=== PATIENT | male | born 1985 | race Two or more races ===

== ENCOUNTER → 2023-04-15 | Outpatient (CLI) | payer OTHER ==
[2023-04-15 11:07] LABS: Basophils # (auto) 0.1 10 ^3/uL (0-0.2); Basophils % (auto) 1.5 % (0.0-2.0); Eosinophils # (auto) 0.2 10 ^3/uL (0-0.8); Eosinophils % (auto) 4.6 % (0.0-7.0); Hematocrit 44.2 % (41.0-53.0); Hemoglobin 15.6 g/dL (13.5-17.5); Lymphocytes # (auto) 1.7 10 ^3/uL (0.4-5.4); Lymphocytes % (auto) 33.6 % (10.0-50.0); Mean Corpuscular Hemoglobin 29.5 pg (28.0-32.0); Mean Corpuscular Hgb Conc. 35.4 g/dL (32.0-36.0); Mean Corpuscular Volume 83.4 fL (80.0-100.0); Monocytes # (auto) 0.3 10 ^3/uL (0-1.3); Monocytes % (auto) 5.6 % (0.0-12.0); Neutrophils # (auto) 2.8 10 ^3/uL (1.6-8.6); Neutrophils % (auto) 54.7 % (37.0-80.0); Nucleated Red Blood Cells % 0.8 %; Red Blood Cells 5.29 10^6/uL (4.5-5.90); White Blood Cell 5.1 10^3/uL (4.4-10.8)
[2023-04-15 11:26] LABS: Albumin 4.1 g/dL (3.4-5.0); Calcium 9.1 mg/dL (8.5-10.1)
[2023-04-15 11:29] LABS: Urine Bacteria NONE SEEN /hpf (None Seen); Urine Blood Negative /uL (Negative); Urine Specific Gravity 1.025 (1.001-1.035); Urine WBC 1 /hpf (0 - 3)
[2023-04-15 11:32] LABS: Bilirubin, Total 0.8 mg/dL (0.2-1.0); Potassium 3.9 mmol/L (3.5-5.1); Total Protein 7.7 g/dL (6.4-8.2); Uric Acid 6.4 mg/dL (3.5-7.2)
[2023-04-15 11:38] LABS: BUN/Creatinine Ratio 15.6 (10.0-20.0)
== END | disposition home or self-care (01) ==
LOC: LAB 10:44
PROVIDERS: ATTEND Student in an Organized Health Care Education/Training Program
DX: I10 Essential (primary) hypertension (principal); E03.9 Hypothyroidism, unspecified; M10.9 Gout, unspecified
CPT/HCPCS: 36415; 80053; 80061; 81001; 83036; 84439; 84443; 84550; 85025

== ENCOUNTER → 2024-02-22 | Outpatient (CLI) | payer OTHER ==
[2024-02-22 11:47] LABS: Urine Bacteria None Seen /hpf (None Seen); Urine WBC None Seen /hpf (0 - 3)
[2024-02-22 12:01] LABS: Hematocrit 43.5 % (41.0-53.0); Hemoglobin 15.1 g/dL (13.5-17.5); Mean Corpuscular Hemoglobin 29.3 pg (28.0-32.0); Mean Corpuscular Hgb Conc. 34.6 g/dL (32.0-36.0); Mean Corpuscular Volume 84.5 fL (80.0-100.0); Red Blood Cells 5.15 10^6/uL (4.5-5.90); Red Cell Distribution Width 13.7 % (11.8-14.3); White Blood Cell 3.8 10^3/uL (4.4-10.8)
[2024-02-22 12:04] LABS: Urine Blood Negative /uL (Negative); Urine Clarity Clear (Clear); Urine Color Light-Yellow (Yellow); Urine Protein, UAD 1+ (Negative); Urine Specific Gravity 1.015 (1.001-1.035); Urine Urobilinogen Normal (Negative); Urine pH 5.5 (5.0-9.0)
[2024-02-22 12:09] LABS: Basophils % (manual) 0 (0.0-2.0); Blast Cells 0; Metamyelocytes % 0; Monocytes % (manual) 0 (0-12); Myelocytes % 0; Promyelocytes % 0; Reactive Lymphocytes 0
[2024-02-22 12:30] LABS: Band Neutrophils % (manual) 1; Eosinophils % (manual) 25 (0-7); Lymphocytes % (manual) 35 (10.0-50.0); Platelet Estimate Adequate
[2024-02-22 12:42] LABS: Alanine Aminotransferase 55 U/L (7-40); Albumin 4.3 g/dL (3.2-4.8); Alkaline Phosphatase 85 U/L (46-116); Anion Gap 6 (5-15); Aspartate Aminotransferase 30 U/L (13-40); Blood Urea Nitrogen 19 mg/dL (9-23); Calcium 9.5 mg/dL (8.5-10.1); Carbon Dioxide 26 mmol/L (20-30); Chloride 104 mmol/L (98-107); Glucose 171 mg/dL (74-106); LDL Cholesterol 95 mg/dL (< 100); Potassium 4.5 mmol/L (3.5-5.1); Sodium 136 mmol/L (136-145); Triglycerides 110 mg/dL (< 150)
[2024-02-22 12:43] LABS: Bilirubin, Total 0.9 mg/dL (0.2-1.0); Cholesterol 150 mg/dL (< 200); HDL Cholesterol 39 mg/dL (40-59); Total Protein 7.5 g/dL (5.7-8.2)
[2024-02-22 12:50] LABS: Creatinine, Urine 105.59 mg/dL (30.0-125.0)
== END | disposition home or self-care (01) ==
LOC: LAB 11:34
PROVIDERS: ATTEND Student in an Organized Health Care Education/Training Program
DX: I10 Essential (primary) hypertension (principal); E11.9 Type 2 diabetes mellitus without complications; E03.8 Other specified hypothyroidism; N28.89 Other specified disorders of kidney and ureter
CPT/HCPCS: 36415; 80053; 80061; 81001; 82043; 82378; 82570; 83036; 84443; 85007; 85027

== ENCOUNTER → 2024-07-16 | Outpatient (CLI) | payer OTHER ==
[2024-07-16 11:09] LABS: Potassium 4.1 mmol/L (3.5-5.1)
[2024-07-16 11:10] LABS: Calcium 9.7 mg/dL (8.7-10.4)
[2024-07-16 11:15] LABS: BUN/Creatinine Ratio 12.4 (10.0-20.0)
[2024-07-16 11:16] LABS: Albumin 4.2 g/dL (3.2-4.8)
[2024-07-16 11:17] LABS: Phosphorus 3.6 mg/dL (2.4-5.1)
[2024-07-16 11:25] LABS: CRP High Sensitivity 1.33 mg/dL (<1.0)
[2024-07-16 12:17] LABS: Erythrocyte Sedimentation Rate 9 mm/hr (0-20)
== END | disposition home or self-care (01) ==
LOC: LAB 09:46
PROVIDERS: ATTEND Internal Medicine
DX: I10 Essential (primary) hypertension (principal); E11.69 Type 2 diabetes mellitus with other specified complication; R60.0 Localized edema; R21 Rash and other nonspecific skin eruption
CPT/HCPCS: 36415; 80061; 80069; 83036; 85652; 86038; 86141

== ENCOUNTER → 2024-08-03 | Outpatient (CLI) | payer OTHER | END | disposition home or self-care (01) | LOC: XYW 07:30 | PROVIDERS: ATTEND Internal Medicine | DX: I51.7 Cardiomegaly (principal); R06.02 Shortness of breath; R06.09 Other forms of dyspnea | CPT/HCPCS: 93306 ==

== ENCOUNTER → 2024-10-03 | Outpatient (CLI) | payer OTHER ==
[~2024-10-03] VITALS: Ht 185.4 cm; Wt 99.8 kg
[2024-10-03 08:59] VITALS: BP 112/81; PULSE 83; RESP 17
--- NOTE | 2024-10-03 09:15 | DVHCARD ---
Cardiology Stress Test [place] Treadmill Stress Test [place] Referring MD: MD Bridget Protocol: Manolo (without cardiolite) Reason for referral: Other (Bilateral lower extremity edema) Target heart Rate:@85%: 153 Percent MPHR: 181 METS: 10.10 Resting Heart rate: 83 Resting Blood Pressure: 112/81 Exercise Heart Rate: 171 Exercise Blood Pressure: 184/114 Baseline EKG: Normal sinus rhythm Stress EKG: Sinus tachycardia Functional Capacity: Good Normal Heart Rate Response: Adequate Blood Pressure Response: Hypertensive Clinical response: Non-ischemic Arrhythmia?: No Cardiolite Injected?: No ST-T Changes: Non/Minimal Probability of Inducible Ische: Low Date of Service: Oct 03, 2024 Billing Provider: DESEAN RODRÍGUEZ MD Cardiology Common Codes: PROCEDURE ONLY Treadmill w/o Cardiolite: [id number], INTERP, RPT CAITLIN ZULUAGA Oct 03, 2024 09:15
== END | disposition home or self-care (01) ==
LOC: XYW 08:30
PROVIDERS: ATTEND Internal Medicine
DX: R06.02 Shortness of breath (principal); R53.83 Other fatigue; E11.65 Type 2 diabetes mellitus with hyperglycemia; I10 Essential (primary) hypertension; R80.9 Proteinuria, unspecified; N28.1 Cyst of kidney, acquired
CPT/HCPCS: 93017

== ENCOUNTER → 2025-01-28 | Outpatient (CLI) | payer OTHER ==
[2025-01-28 11:35] LABS: Urine Bacteria None Seen /hpf (None Seen)
[2025-01-28 11:42] LABS: Nucleated Red Blood Cells % 0.2 %
[2025-01-28 11:54] LABS: Basophils # (auto) 0.1 10 ^3/uL (0-0.2); Basophils % (auto) 2.4 % (0.0-2.0); Eosinophils # (auto) 0.4 10 ^3/uL (0-0.8); Lymphocytes # (auto) 1.2 10 ^3/uL (0.4-5.4); Lymphocytes % (auto) 30.1 % (10.0-50.0); Mean Corpuscular Hemoglobin 27.7 pg (28.0-32.0); Mean Corpuscular Volume 81.6 fL (80.0-100.0); Monocytes # (auto) 0.3 10 ^3/uL (0-1.3); Monocytes % (auto) 6.8 % (0.0-12.0); Neutrophils % (auto) 50.7 % (37.0-80.0); Platelet Count (auto) 218 10^3/uL (140-450); Red Blood Cells 5.76 10^6/uL (4.5-5.90)
[2025-01-28 12:06] LABS: Urine Blood TRACE /uL (Negative); Urine Clarity Clear (Clear); Urine Color Light-Yellow (Yellow); Urine Mucus FEW (None Seen); Urine Protein, UAD 2+ (Negative); Urine Specific Gravity 1.018 (1.001-1.035); Urine Squamous Epithelial Cell None Seen /hpf (<5); Urine Urobilinogen Normal (Negative); Urine WBC < 1 /HPF (0-3); Urine pH 5.5 (5.0-9.0)
[2025-01-28 12:13] LABS: Creatinine, Urine 144.49 mg/dL (30.0-125.0)
[2025-01-28 12:16] LABS: Alanine Aminotransferase 24 U/L (7-40); Alkaline Phosphatase 84 U/L (46-116); Anion Gap 7 (5-15); Aspartate Aminotransferase 21 U/L (13-40); BUN/Creatinine Ratio 13.7 (10.0-20.0); Blood Urea Nitrogen 19 mg/dL (9-23); Calcium 9.8 mg/dL (8.7-10.4); Carbon Dioxide 28 mmol/L (20-31); Chloride 105 mmol/L (98-107); GFR African American 73 mL/min; GFR Non-African American 60 mL/min; Potassium 4.1 mmol/L (3.5-5.1); Sodium 140 mmol/L (136-145)
[2025-01-28 12:17] LABS: Albumin 4.6 g/dL (3.2-4.8); Bilirubin, Total 1.1 mg/dL (0.2-1.0); Phosphorus 3.7 mg/dL (2.4-5.1)
[2025-01-28 12:19] LABS: Glucose 140 mg/dL (74-106); Total Protein 8.7 g/dL (5.7-8.2)
[2025-01-28 12:20] LABS: Erythrocyte Sedimentation Rate 20 mm/hr (0-20)
[2025-01-28 12:29] LABS: Triglycerides 130 mg/dL (< 150)
[2025-01-28 12:30] LABS: LDL Cholesterol 96 mg/dL (< 100)
[2025-01-28 12:31] LABS: Cholesterol 159 mg/dL (< 200); HDL Cholesterol 42 mg/dL (40-59)
[2025-01-29 08:07] LABS: Complement C3 125 mg/dL (82-167)
[2025-01-29 17:07] LABS: Sjogren's Anti-SS-A Antibody <0.2 AI (0.0-0.9); Sjogren's Anti-SS-B Antibody <0.2 AI (0.0-0.9); Smith Antibody <0.2 AI (0.0-0.9)
== END | disposition home or self-care (01) ==
LOC: LAB 10:58
PROVIDERS: ATTEND Student in an Organized Health Care Education/Training Program
DX: I10 Essential (primary) hypertension (principal); E11.9 Type 2 diabetes mellitus without complications; N52.9 Male erectile dysfunction, unspecified; M06.4 Inflammatory polyarthropathy
CPT/HCPCS: 36415; 80053; 80061; 80069; 81001; 82043; 82306; 82570; 83036; 84403; 84443; 84550; 85025; 85652; 86160; 86200; 86235; 86812

== ENCOUNTER 2025-07-12 08:49 | Outpatient (CLI) | payer OTHER ==
[2025-07-12 09:46] LABS: Hematocrit 42.2 % (41.0-53.0); Hemoglobin 15.1 g/dL (13.5-17.5); Mean Corpuscular Hemoglobin 29.1 pg (28.0-32.0); Mean Corpuscular Volume 81.4 fL (80.0-100.0); Nucleated Red Blood Cells % 0.1 %
[2025-07-12 10:16] LABS: Alanine Aminotransferase 26 U/L (7-40); Albumin 4.1 g/dL (3.2-4.8); Alkaline Phosphatase 99 U/L (46-116); Anion Gap 9 (5-15); BUN/Creatinine Ratio 10.9 (10.0-20.0); Blood Urea Nitrogen 15 mg/dL (9-23); Calcium 9.2 mg/dL (8.7-10.4); Carbon Dioxide 26 mmol/L (20-31); Chloride 100 mmol/L (98-107); Cholesterol 151 mg/dL (< 200); HDL Cholesterol 44 mg/dL (40-59); Potassium 4.1 mmol/L (3.5-5.1); Total Protein 8.0 g/dL (5.7-8.2); Triglycerides 119 mg/dL (< 150)
[2025-07-12 10:20] LABS: Bilirubin, Total 1.4 mg/dL (0.2-1.0); Glucose 204 mg/dL (74-106); Sodium 135 mmol/L (136-145)
[2025-07-12 10:34] LABS: Uric Acid 8.5 mg/dL (3.7-9.2)
== END 2025-07-12 17:00 | disposition home or self-care (01) ==
LOC: LAB 08:49
PROVIDERS: ATTEND Student in an Organized Health Care Education/Training Program
DX: I10 Essential (primary) hypertension (principal); E11.9 Type 2 diabetes mellitus without complications; E03.8 Other specified hypothyroidism; Z13.1 Encounter for screening for diabetes mellitus; Z13.220 Encounter for screening for lipoid disorders; Z13.228 Encounter for screening for other metabolic disorders; Z13.29 Encounter for screening for other suspected endocrine disorder; M25.59 Pain in other specified joint
CPT/HCPCS: 36415; 80053; 80061; 82306; 83036; 84439; 84443; 84550; 85025